=== PATIENT | male | born 1980 | race Caucasian/White ===

== ENCOUNTER 2021-01-16 14:29 | Emergency (ER) | payer OTHER ==
--- NOTE | 2021-01-16 15:02 | EDM.PDOC ---
ED HPI GENERAL MEDICAL PROBLEM - General Chief Complaint: Lower Extremity Injury/Pain Stated Complaint: GOUT FLARE UP Time Seen by Provider: 01/16/21 14:45 Source of Information: Reports: Patient, RN Notes Reviewed History Limitations: Reports: No Limitations - History of Present Illness INITIAL COMMENTS - FREE TEXT/NARRATIVE: Patient is a 40-year-old male presenting to the emergency department complaints of an acute gout flare in his right knee. Reports that symptoms began yesterday. He does have a history of recurrent gout which she states he normally gets in his knees. He is prescribed colchicine which he took yesterday and today with little to no relief. He does report that he had red meat and beer on Sunday which was 2 days ago. He normally avoids these type of foods. Denies any recent injuries to the knee.. Right Knee Pain Score (Numeric/FACES): 8 - Related Data Allergies Allergy/AdvReac Type Severity Reaction Status Date / Time amoxicillin [From Augmentin] Allergy Cannot Verified 01/16/21 14:37 Remember clavulanic acid Allergy Cannot Verified 01/16/21 14:37 [From Augmentin] Remember Home Meds: Home Meds Allopurinol [Zyloprim] 300 mg PO DAILY 01/16/21 [History] Colchicine 0.6 mg PO ASDIRECTED 01/16/21 [History] predniSONE [Prednisone] 20 mg PO ASDIRECTED #15 tablet 01/16/21 [Rx] Past Medical History HEENT History: Reports: None Cardiovascular History: Reports: None Respiratory History: Reports: None Gastrointestinal History: Reports: None Genitourinary History: Reports: None Musculoskeletal History: Reports: Gout Neurological History: Reports: None Psychiatric History: Reports: None Endocrine/Metabolic History: Reports: None Hematologic History: Reports: None Immunologic History: Reports: None Oncologic (Cancer) History: Reports: None Dermatologic History: Reports: None - Infectious Disease History Infectious Disease History: Reports: Chicken Pox, Novel Coronavirus - Past Surgical History HEENT Surgical History: Reports: None Social & Family History - Family History Family Medical History: No Pertinent Family History - Tobacco Use Tobacco Use Status *Q: Current Some Day Tobacco User Years of Tobacco use: 18 Packs/Tins Daily: 0.1 - Caffeine Use Caffeine Use: Reports: Energy Drinks - Recreational Drug Use Recreational Drug Use: No Review of Systems - Review of Systems Review Of Systems: Comprehensive ROS is negative, except as noted in HPI. ED EXAM, GENERAL - Physical Exam Exam: See Below General Appearance: Alert, WD/WN, No Apparent Distress Respiratory/Chest: No Respiratory Distress, Lungs Clear, Normal Breath Sounds, No Accessory Muscle Use, Chest Non-Tender Cardiovascular: Normal Peripheral Pulses, Regular Rate, Rhythm, No Edema, No Gallop, No JVD, No Murmur, No Rub Extremities: Other (Tenderness to palpation to the anterior right knee. No significant redness, warmth, or swelling noted. No ecchymosis.) Neurological: Alert, Oriented, CN II-XII Intact, Normal Cognition, Normal Gait, Normal Reflexes, No Motor/Sensory Deficits Psychiatric: Normal Affect, Normal Mood Skin Exam: Warm, Dry, Intact, Normal Color, No Rash Course - Vital Signs Last Recorded V/S: Last Vital Signs Temp 97.5 F 01/16/21 14:41 Pulse 83 01/16/21 14:41 Resp 18 01/16/21 14:41 BP 131/91 H 01/16/21 14:41 Pulse Ox 98 01/16/21 14:41 - Re-Assessments/Exams Free Text/Narrative Re-Assessment/Exam: Patient is a 40-year-old male presenting to the emergency department with complaints of an acute flare of gout in his right knee. He has a long history of recurrent gout which she states generally occurs in his knees. He has prescribed allopurinol for prevention, however states he has not been taking this. He does have a prescription for colchicine, however it is more than 2 years old. He took 1 tab yesterday 1 tab today with little relief. He does report eating red meat and having beer on Sunday which he normally does not consume. On exam, he has some mild tenderness to the anterior aspect of the knee. There is no obvious redness, warmth, or swelling. Reports pain is worse when he is up and walking. We will start him on a tapering dose of prednisone. I will provide him with a note for work for this evening. Discharge instructions as documented. Departure - Departure Time of Disposition: 15:01 Disposition: Home, Self-Care 01 Condition: Good Clinical Impression: Gout attack Qualifiers: Gout site: knee Gout etiology: unspecified cause Laterality: right Qualified Code(s): M10.9 - Gout, unspecified - Discharge Information *PRESCRIPTION DRUG MONITORING PROGRAM REVIEWED*: No *COPY OF PRESCRIPTION DRUG MONITORING REPORT IN PATIENT EUGENIO: No Prescriptions: predniSONE [Prednisone] 20 mg PO ASDIRECTED #15 tablet Instructions: Low-Purine Eating Plan Referrals: PCP,None [Primary Care Provider] - Forms: ED Department Discharge, ED Return to Work/School Form Additional Instructions: You were seen in the emergency department today for evaluation with regards to a gout attack in your right knee. A prescription for prednisone which is a steroid has been sent to [facility] [place]. Take this medication as prescribed. You may continue to use Tylenol as needed for discomfort. A note has been provided off from work for you for this evening. Take your allopurinol as previously prescribed. Avoid foods which are rich in purine's. Return to ER for any new or worsening symptoms of concern. Sepsis Event Note (ED) - Evaluation Sepsis Screening Result: No Definite Risk - Focused Exam Vital Signs: Vital Signs Temp Pulse Resp BP Pulse Ox 01/16/21 14:41 97.5 F 83 18 131/91 H 98
== END 2021-01-16 15:15 | disposition home or self-care (01) ==
LOC: JD.ED 14:29
DX: M10.9 Gout, unspecified (principal); Z88.0 Allergy status to penicillin; Z88.1 Allergy status to other antibiotic agents; Z72.0 Tobacco use
CPT/HCPCS: 99282; 99283